=== PATIENT | male | born 1955 | race Caucasian/White ===

== ENCOUNTER → 2021-10-16 | Day surgery (SDC) | payer OTHER, MEDICARE ==
[~2021-10-16] VITALS: Ht 170.2 cm; Wt 100.0 kg
[~2021-10-16] MED LIST: ALLEGRA ALLERG180 MG PO; B COMPLEX1 EACH PO; CENTRUM SILVER1 EAC5 PO; FLEXERIL10 MG PO; FLOMAX0.4 MG PO; GLUCOPHAGE1000 MG PO; HYDROCODON-ACE1 EAC4 PO; JANUVIA100 MG PO; LIPITOR 10MG TA10 MG PO; LISINOPRIL-HCT1 EAC1 PO; LOVAZA1 GM PO; MAG-OXIDE 400M400 MG PO; MICRONASE5 MG PO; MOBIC15 MG PO; MOBIC7.5 MG PO; NIACIN ER500 MG PO; NORCO 5-325 TA1 EACH PO; OZEMPIC SC; POTASSIUM99 M1 PO; TURMERIC 450-51 EACH PO; VITAMIN D325 MC2 PO; ZOFRAN4 MG PO
[2021-10-16 08:06] LABS: HCT 47.6 % (42.0-52.0); HGB 16.3 g/dl (13.2-18.0); MCH 30.4 pg (25.0-31.0); MCHC 34.2 g/dL (32.0-36.0); MCV 88.8 fL (78.0-100.0); MPV 9.7 fL (6.0-9.5); RBC 5.36 M/uL (4.70-6.00); RDW 12.7 % (11.5-14.0)
[2021-10-16 08:48] LABS: ALBUMIN 4.3 g/dL (3.4-5.0); BILIRUBIN - TOTAL 0.6 mg/dL (0.2-1.0); BUN/CREAT RATIO (CALC) 21.5 RATIO; CREATININE 1.3 mg/dL (0.67-1.17); GLOBULIN (CALCULATION) 3.8 g/dL; POTASSIUM 4.2 mmol/L (3.5-5.1); TOTAL PROTEIN 8.1 g/dL (6.4-8.2)
== END | disposition home or self-care (01) ==
LOC: FAS 07:27
PROVIDERS: Surgery
DX: Z12.11 Encounter for screening for malignant neoplasm of colon (principal); K57.30 Diverticulosis of large intestine without perforation or abscess without bleeding; C61 Malignant neoplasm of prostate; I10 Essential (primary) hypertension; E11.9 Type 2 diabetes mellitus without complications; E78.00 Pure hypercholesterolemia, unspecified; Z79.1 Long term (current) use of non-steroidal anti-inflammatories (NSAID); Z79.84 Long term (current) use of oral hypoglycemic drugs; Z79.899 Other long term (current) drug therapy; Z90.49 Acquired absence of other specified parts of digestive tract
CPT/HCPCS: 36415; 80053; 82962; J2704; J7120